=== PATIENT | female | born 1995 | race Caucasian/White ===

== ENCOUNTER → 2016-05-12 | Outpatient (CLI) | payer BC ==
[~2016-05-12] MED LIST: SPRINTEC 35 MCG1 TAB PO
[2016-05-12 12:17] VITALS: BP 127/81
[2016-05-12 14:11] VITALS: BP 123/69
== END ==
LOC: AMSURD 12:06
DX: R11.10 Vomiting, unspecified (principal)
CPT/HCPCS: J2405; J7030

== ENCOUNTER 2018-02-15 00:26 | Emergency (ER) | payer BC ==
[2018-02-15] MEDS ORDERED: MEDROXYPROG150 MG/M1 (00:39)
[2018-02-15] MEDS ORDERED: ESCITALOPRAM20 MG PO (00:39)
[2018-02-15 00:49] LABS: BASO # 0.1 (0.02-0.10); EOS % 7.6 % (1.0-5.0); HEMATOCRIT 39.6 % (37.0-47.0); HEMOGLOBIN 13.2 g/dL (12.5-16.0); LYMPH# 3.8 (1.50-4.00); MEAN CELL VOLUME 84 fl (78-100); MEAN CORPUSCULAR HEMOGLOBIN 28 pg (27-31); MEAN CORPUSCULAR HGB CONC 33 g/dL (33-37); MEAN PLATELET VOLUME 9.8 fl (7.4-10.4); MONO # 0.6 (0.20-0.80); NEU # 3.8 (1.40-6.50); PLATELET COUNT 368 K/mm3 (130-400); RED BLOOD COUNT 4.74 M/mm3 (4.10-5.30); RED CELL DISTRIBUTION WIDTH 12.5 % (11.5-14.5)
[2018-02-15 00:56] LABS: EOS # 0.7 (0.04-0.40)
[2018-02-15 01:00] LABS: ALBUMIN 4.4 g/dL (3.5-5.0); CALCIUM 8.7 mg/dL (8.4-10.2); POTASSIUM 3.7 mmol/L (3.6-5.0); TOTAL BILIRUBIN 0.6 mg/dL (0.2-1.3); TOTAL PROTEIN 7.2 g/dL (6.3-8.2)
[2018-02-15 01:01] LABS: URINE APPEARANCE CLOUDY; URINE COLOR YELLOW; URINE GLUCOSE NEGATIVE (NEGATIVE); URINE PROTEIN(semi-quant) TRACE mg/dL (NEGATIVE)
[2018-02-15 01:02] LABS: URINE BILIRUBIN NEGATIVE (NEGATIVE); URINE BLOOD 50 ery/uL (NEGATIVE); URINE KETONE NEGATIVE (NEGATIVE); URINE LEUKOCYTE ESTERASE 2+ (NEGATIVE); URINE NITRATE NEGATIVE (NEGATIVE); URINE UROBILINOGEN NORMAL (NORMAL); URINE WBC >50 /hpf (0-3)
[2018-02-15] MEDS ORDERED: ZOFRAN ODT4 MG PO (01:11)
[2018-02-15] MEDS ORDERED: NORCO 325 MG-51 TA1 PO (01:11)
[2018-02-15] MEDS ORDERED: PYRIDIUM200 M2 PO (01:11)
[2018-02-15] MEDS ORDERED: BACTRIM DS TAB1 EACH PO (01:11)
[2018-02-15 01:24] VITALS: BP 127/75
== END 2018-02-15 01:24 | disposition home or self-care (01) ==
LOC: ED 00:26
PROVIDERS: Nurse Practitioner
DX: N10 Acute pyelonephritis (principal); Z79.899 Other long term (current) drug therapy
CPT/HCPCS: J0696

== ENCOUNTER → 2018-03-04 | Outpatient (CLI) | payer BC ==
[~2018-03-04] VITALS: Ht 162.6 cm; Wt 47.7 kg
[~2018-03-04] MED LIST changes: +BACTRIM DS TAB1 EACH PO; +ESCITALOPRAM20 MG PO; +LOMOTIL TAB 01 UDTAB; +MEDROXYPROG150 MG/M1; +NORCO 325 MG-51 TA1 PO; +PYRIDIUM200 M2 PO; +ZOFRAN ODT4 MG PO
[2018-03-04 17:15] VITALS: BP 117/80
[2018-03-04 17:54] LABS: BASO # 0.1 (0.02-0.10); EOS # 0.4 (0.04-0.40); EOS % 4.9 % (1.0-5.0); HEMATOCRIT 39.6 % (37.0-47.0); HEMOGLOBIN 13.5 g/dL (12.5-16.0); LYMPH# 2.9 (1.50-4.00); MEAN CELL VOLUME 83 fl (78-100); MEAN CORPUSCULAR HEMOGLOBIN 28 pg (27-31); MEAN CORPUSCULAR HGB CONC 34 g/dL (33-37); MONO # 0.5 (0.20-0.80); NEU # 4.3 (1.40-6.50); PLATELET COUNT 331 K/mm3 (130-400); RED BLOOD COUNT 4.76 M/mm3 (4.10-5.30); RED CELL DISTRIBUTION WIDTH 12.5 % (11.5-14.5); WHITE BLOOD COUNT 8.2 K/mm3 (4.8-10.8)
[2018-03-04 18:00] LABS: ALBUMIN 4.7 g/dL (3.5-5.0); CALCIUM 9.7 mg/dL (8.4-10.2); TOTAL BILIRUBIN 0.6 mg/dL (0.2-1.3); TOTAL PROTEIN 7.4 g/dL (6.3-8.2)
[2018-03-04 18:22] LABS: URINE APPEARANCE HAZY; URINE COLOR YELLOW
[2018-03-04 18:23] LABS: URINE BILIRUBIN NEGATIVE (NEGATIVE); URINE BLOOD TRACE (NEGATIVE); URINE GLUCOSE NEGATIVE (NEGATIVE); URINE KETONE NEGATIVE (NEGATIVE); URINE LEUKOCYTE ESTERASE 1+ (NEGATIVE); URINE NITRATE NEGATIVE (NEGATIVE); URINE PROTEIN(semi-quant) NEGATIVE (NEGATIVE); URINE UROBILINOGEN NORMAL (NORMAL)
[2018-03-04 19:08] VITALS: BP 107/69
== END ==
LOC: LAB 16:54 → AMSURD 16:54
PROVIDERS: Nurse Practitioner Primary Care
DX: N30.00 Acute cystitis without hematuria (principal); R11.2 Nausea with vomiting, unspecified
CPT/HCPCS: J0696; J2405; J7030

== ENCOUNTER 2018-04-06 20:59 | Emergency (ER) | payer BC ==
[2018-04-06 21:51] LABS: HEMATOCRIT 40.8 % (37.0-47.0); HEMOGLOBIN 13.8 g/dL (12.5-16.0); MEAN CELL VOLUME 83 fl (78-100); MEAN CORPUSCULAR HEMOGLOBIN 28 pg (27-31); MEAN CORPUSCULAR HGB CONC 34 g/dL (33-37); MEAN PLATELET VOLUME 9.7 fl (7.4-10.4); PLATELET COUNT 390 K/mm3 (130-400); RED BLOOD COUNT 4.91 M/mm3 (4.10-5.30); RED CELL DISTRIBUTION WIDTH 12.7 % (11.5-14.5)
[2018-04-06 22:04] LABS: ALBUMIN 4.7 g/dL (3.5-5.0); CALCIUM 9.1 mg/dL (8.4-10.2); POTASSIUM 3.6 mmol/L (3.6-5.0); TOTAL BILIRUBIN 0.8 mg/dL (0.2-1.3); TOTAL PROTEIN 7.6 g/dL (6.3-8.2)
[2018-04-06 22:19] LABS: BAND 2 % (0-10); LYMPHOCYTE 8 % (20-51); MONOCYTE 2 % (3-10); NEUTROPHILS 86 % (42-75)
[2018-04-06 22:21] LABS: URINE APPEARANCE HAZY; URINE COLOR YELLOW
[2018-04-06 22:22] LABS: URINE BILIRUBIN NEGATIVE (NEGATIVE); URINE BLOOD TRACE (NEGATIVE); URINE GLUCOSE NEGATIVE (NEGATIVE); URINE KETONE 2+ (NEGATIVE); URINE LEUKOCYTE ESTERASE TRACE (NEGATIVE); URINE MUCUS PRESENT (NOT PRESENT); URINE NITRATE NEGATIVE (NEGATIVE); URINE PROTEIN(semi-quant) 1+ mg/dL (NEGATIVE); URINE UROBILINOGEN NORMAL (NORMAL)
[2018-04-06] MEDS ORDERED: ZOFRAN ODT4 MG PO (22:50)
[2018-04-06 22:56] VITALS: BP 124/78
== END 2018-04-06 22:56 | disposition home or self-care (01) ==
LOC: ED 20:59
PROVIDERS: Physician Assistant
DX: R11.2 Nausea with vomiting, unspecified (principal); R10.84 Generalized abdominal pain; Z79.3 Long term (current) use of hormonal contraceptives
CPT/HCPCS: J2405; J3010; J7030; Q9967

== ENCOUNTER 2018-06-13 19:59 | Emergency (ER) | payer BC ==
[2018-06-13] MEDS ORDERED: AMOXICILLIN 50500 MG PO (21:12)
[2018-06-13 21:14] VITALS: BP 130/78
== END 2018-06-13 21:22 | disposition home or self-care (01) ==
LOC: ED 19:59
DX: J02.9 Acute pharyngitis, unspecified (principal); Z98.890 Other specified postprocedural states; Z87.448 Personal history of other diseases of urinary system

== ENCOUNTER → 2023-12-23 | Outpatient (CLI) | payer MEDICAID ==
[~2023-12-23] MED LIST changes: +AMOXICILLIN 50500 MG PO
[2023-12-23 16:03] LABS: ALBUMIN 4.6 g/dL (3.5-5.0); BASO # 0.06 K/mm3 (0.02-0.10); EOS # 0.82 K/mm3 (0.04-0.40); EOS % 7.9 % (1.0-5.0); HEMOGLOBIN 13.5 g/dL (12.5-16.0); LYMPH# 2.63 K/mm3 (1.50-4.00); MEAN CELL VOLUME 85 fl (78-100); MEAN CORPUSCULAR HEMOGLOBIN 28 pg (27-31); MEAN CORPUSCULAR HGB CONC 33 g/dL (33-37); MEAN PLATELET VOLUME 9.7 fl (7.4-10.4); MONO # 0.66 K/mm3 (0.20-0.80); NEU # 6.16 K/mm3 (1.40-6.50); PLATELET COUNT 429 K/mm3 (130-400); RED BLOOD COUNT 4.84 M/mm3 (4.10-5.30); WHITE BLOOD COUNT 10.3 K/mm3 (4.8-10.8)
[2023-12-23 16:04] LABS: CALCIUM 9.3 mg/dL (8.3-10.5)
[2023-12-23 16:05] LABS: TOTAL PROTEIN 7.3 g/dL (6.4-8.3)
[2023-12-23 16:07] LABS: TOTAL BILIRUBIN 0.3 mg/dL (0.2-1.2)
== END ==
LOC: LAB 15:18
PROVIDERS: Nurse Practitioner
DX: Z00.00 Encounter for general adult medical examination without abnormal findings (principal); N92.5 Other specified irregular menstruation; R20.8 Other disturbances of skin sensation; R14.0 Abdominal distension (gaseous); R53.83 Other fatigue; Z86.39 Personal history of other endocrine, nutritional and metabolic disease